=== PATIENT | male | born 1980 | race African-American/Black ===

== ENCOUNTER 2017-12-15 19:56 | Emergency (ER) | payer OTHER ==
[2017-12-15 20:18] LABS: ADD MAN DIFF? NO
[2017-12-15 20:20] LABS: BASO # 0.1 x10^3/uL (0.0-0.2); BASO % 1 % (0-3); EOS # 0.2 x10^3/uL (0.0-0.7); EOS % 3 % (0-3); HEMATOCRIT 38.1 % (39.0-53.0); HEMOGLOBIN 13.5 g/dL (13.0-17.5); LYMPH # 2.7 x10^3/uL (1.0-4.8); LYMPH % 38 % (24-48); MEAN CORPUSCULAR HEMOGLOBIN 29 pg (25-35); MEAN CORPUSCULAR HGB CONC 35 g/dL (31-37); MEAN CORPUSCULAR VOLUME 82 fL (79-100); MONO # 0.4 x10^3/uL (0.0-1.1); MONO % 6 % (0-9); NEUT # 3.7 x10^3uL (1.8-7.7); NEUT % 51 % (31-73); PLATELET COUNT 367 x10^3/uL (140-400); RED BLOOD COUNT 4.65 x10^6/uL (4.30-5.70); RED CELL DISTRIBUTION WIDTH 14.2 % (11.5-14.5); WHITE BLOOD COUNT 7.2 x10^3/uL (4.0-11.0)
[2017-12-15 20:30] LABS: ANION GAP 6 (6-14); BLOOD UREA NITROGEN 18 mg/dL (8-26); CALCIUM 9.2 mg/dL (8.5-10.1); CARBON DIOXIDE 30 mmol/L (21-32); CHLORIDE 98 mmol/L (98-107); CREATININE 1.4 mg/dL (0.7-1.3); GLUCOSE 371 mg/dL (70-99); POTASSIUM 3.7 mmol/L (3.5-5.1); SODIUM 134 mmol/L (136-145)
[2017-12-15 20:39] LABS: TROPONINI < 0.017 ng/mL (0.000-0.055)
[2017-12-15 20:43] LABS: NT-PRO BNP 72 pg/mL (0-124)
[2017-12-15] MEDS: cloNIDine HCL 0.1 MG TABLET PO (21:44)
== END 2017-12-15 23:15 | disposition home or self-care (01) ==
LOC: ER 19:56
DX: I10 Essential (primary) hypertension (principal); R07.89 Other chest pain
CPT/HCPCS: 36415; 71045; 80048; 83880; 84484; 85025; 93005; 99285-25

== ENCOUNTER 2018-03-01 12:36 | Emergency (ER) | payer OTHER ==
[~2018-03-01] VITALS: Ht 190.5 cm; Wt 105.7 kg
[2018-03-01 12:47] VITALS: BP 174/100
[2018-03-01 13:42] LABS: BILIRUBIN,URINE NEGATIVE (NEG); CLARITY,URINE CLEAR; COLOR,URINE YELLOW; NITRITE,URINE NEGATIVE (NEG); PH,URINE 5.5; PROTEIN,URINE >=300 mg/dL (NEG-TRACE); UROBILINOGEN,URINE 0.2 mg/dL (0.2 mg/dL)
--- NOTE | 2018-03-01 13:45 | PHYS DOC ---
Past Medical History Past Medical History: Hypertension Past Surgical History: No Surgical History Alcohol Use: None Drug Use: None Adult General Chief Complaint Chief Complaint: OTHER COMPLAINTS HPI HPI Patient is a 37 year old AA male who presents to the ER with complaints of left side pain for the last 2 weeks. He reports that he was seen by his doctor and prescribed 2 medications 2 weeks ago but he is unsure of what the diagnosis or medications were. He denies any fever, nausea, vomiting, or diarrhea. States he has has a little bit of constipation. He reports that the pain in is side is fine if he is resting at home. 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 He denies any known injury, numbness, tingling, or back pain. He denies any hematuria, urinary frequency, dysuria, or abdominal pain. He states that his left side is sore to palpation. Kaitlin MUÑOZ contacted PCPs office who report that patient was diagnosed with GERD 2 weeks ago and prescribed zantac and omeprazole. Review of Systems Review of Systems Constitutional: Denies fever or chills [] Respiratory: Denies cough or shortness of breath [] Cardiovascular: Denies chest pain GI: Denies abdominal pain, nausea, vomiting, or diarrhea; reports mild constipation : Denies increased frequency, dysuria or hematuria [] Musculoskeletal: Denies back pain or joint pain [] Integument: Denies rash or skin lesions [] Neurologic: Denies headache, focal weakness or sensory changes [] All other systems were reviewed and found to be within normal limits, except as documented in this note. Allergies Allergies Allergies Coded Allergies Type Severity Reaction Last Updated Verified No Known Drug Allergies 12/15/17 No Physical Exam Physical Exam Constitutional: Well developed, well nourished, no acute distress, non-toxic appearance. [] HENT: Normocephalic, atraumatic, bilateral external ears normal, nose normal. [] Eyes: PERRLA, conjunctiva normal, no discharge. [] Neck: Normal range of motion, no tenderness, supple, no stridor. [] Cardiovascular: Heart rate regular rhythm, no murmur [] Lungs & Thorax: Bilateral breath sounds clear to auscultation [] Abdomen: Bowel sounds normal, soft, no tenderness, no masses, no pulsatile masses; left flank tender to palpation [] Skin: Warm, dry, no erythema, no rash. [] Back: No tenderness Neurologic: Alert and oriented X 3, normal motor function, normal sensory function, no focal deficits noted. [] Psychologic: Affect normal, judgement normal, mood normal. [] Current Patient Data Vital Signs Vital Signs Date Time Temp Pulse Resp B/P (MAP) Pulse Ox O2 Delivery O2 Flow Rate FiO2 03/01/18 12:47 97.8 100 18 174/100 (124) Room Air 97.8 Lab Values Laboratory Tests Test 03/01/18 13:20 03/01/18 14:20 Urine Collection Type Clean catch Urine Color Yellow Urine Clarity Clear Urine pH 5.5 Urine Specific Boyd 1.025 Urine Protein >=300 mg/dL (NEG-TRACE) Urine Glucose (UA) >=1000 mg/dL (NEG) Urine Ketones (Stick) Negative mg/dL (NEG) Urine Blood Moderate (NEG) Urine Nitrite Negative (NEG) Urine Bilirubin Negative (NEG) Urine Urobilinogen Dipstick 0.2 mg/dL (0.2 mg/dL) Urine Leukocyte Esterase Negative (NEG) Urine RBC 11-20 /HPF (0-2) Urine WBC 1-4 /HPF (0-4) Urine Squamous Epithelial Cells Occ /LPF Urine Bacteria Few /HPF (0-FEW) Urine Hyaline Casts Few /HPF Urine Mucus Mod /LPF White Blood Count 7.5 x10^3/uL (4.0-11.0) Red Blood Count 4.81 x10^6/uL (4.30-5.70) Hemoglobin 13.7 g/dL (13.0-17.5) Hematocrit 39.3 % (39.0-53.0) Mean Corpuscular Volume 82 fL (79-100) Mean Corpuscular Hemoglobin 29 pg (25-35) Mean Corpuscular Hemoglobin Concent 35 g/dL (31-37) Red Cell Distribution Width 14.2 % (11.5-14.5) Platelet Count 367 x10^3/uL (140-400) Neutrophils (%) (Auto) 58 % (31-73) Lymphocytes (%) (Auto) 30 % (24-48) Monocytes (%) (Auto) 8 % (0-9) Eosinophils (%) (Auto) 3 % (0-3) Basophils (%) (Auto) 2 % (0-3) Neutrophils # (Auto) 4.3 x10^3uL (1.8-7.7) Lymphocytes # (Auto) 2.3 x10^3/uL (1.0-4.8) Monocytes # (Auto) 0.6 x10^3/uL (0.0-1.1) Eosinophils # (Auto) 0.2 x10^3/uL (0.0-0.7) Basophils # (Auto) 0.1 x10^3/uL (0.0-0.2) Sodium Level 139 mmol/L (136-145) Potassium Level 3.8 mmol/L (3.5-5.1) Chloride Level 100 mmol/L (98-107) Carbon Dioxide Level 33 mmol/L (21-32) H Anion Gap 6 (6-14) Blood Urea Nitrogen 20 mg/dL (8-26) Creatinine 1.4 mg/dL (0.7-1.3) H Estimated GFR (Cockcroft-Gault) 69.0 BUN/Creatinine Ratio 14 (6-20) Glucose Level 348 mg/dL (70-99) H Calcium Level 9.9 mg/dL (8.5-10.1) Total Bilirubin 0.4 mg/dL (0.2-1.0) Aspartate Amino Transferase (AST) 20 U/L (15-37) Alanine Aminotransferase (ALT) 36 U/L (16-63) Alkaline Phosphatase 95 U/L (46-116) Total Protein 7.5 g/dL (6.4-8.2) Albumin 3.0 g/dL (3.4-5.0) L Albumin/Globulin Ratio 0.7 (1.0-1.7) L Laboratory Tests 03/01/18 14:20 Laboratory Tests 03/01/18 14:20 EKG EKG [] Radiology/Procedures Radiology/Procedures PROCEDURE: CT ABDOMEN PELVIS WO CONTRAST CT Abdomen and Pelvis without contrast History: Left flank pain for 2 weeks Technique: Noncontrast CT imaging was performed of the abdomen and pelvis. Multiplanar images are reviewed. Exposure: One or more of the following individualized dose reduction techniques were utilized for this examination: 1. Automated exposure control 2. Adjustment of the mA and/or kV according to patient size 3. Use of iterative reconstruction technique. Comparison: None Findings: There is no renal calculus, convincing ureteral calculus, or hydronephrosis. There is mild distention of the urinary bladder. Ureters in the pelvis are somewhat difficult to visualize in their entirety. Accurate evaluation of abdominal visceral organs is limited without intravenous contrast. There is no obvious abnormality of the spleen, liver, or pancreas. There is no adrenal nodularity. Accurate evaluation of bowel is limited without oral contrast. Normal appendix is visualized. There is no significant free air, free fluid, bowel dilatation. There is borderline left inguinal node about 1.1 cm short axis dimension. Impression: 1. There is no hydronephrosis, renal calculus, or convincing ureteral calculus. There is mild distention of urinary bladder. No significant acute abnormality is identified. 2. There is nonspecific borderline enlarged left inguinal node.[] Course & Med Decision Making Course & Med Decision Making Pertinent Labs and Imaging studies reviewed. (See chart for details) Dx: L flank pain, hematuria CT was negative for kidney stone or hydronephrosis, 1.1 cm enlarged left inguinal lymphnode. Prescriptions written for norflex, and naproxen. Advised pt to follow up with PCP re: hematuria and enlarged lymphnode. Patient verbalized an understanding of home care, medications, follow-up, and return to ED instructions and was in agreement with the plan of care. [] Staff Physician Addendum: I was working in the ER during the course of this patient's visit. I was available for consultation as needed, but I was not directly involved in the care of this patient. Dragon Disclaimer Dragon Disclaimer This electronic medical record was generated, in whole or in part, using a voice recognition dictation system. Departure Departure Impression: Primary Impression: Left flank tenderness Additional Impression: Hematuria Disposition: HOME, SELF-CARE Condition: STABLE Referrals: MANNY REARDON (PCP) Patient Instructions: Flank Pain, [id number], Hematuria-Brief Additional Instructions: Fill prescriptions and use as directed. Avoid activities that worsen your symptoms. Follow up with your PCP about your hematuria and enlarged inguinal lymphnode this week. Return to the ER your symptoms worsen. Scripts Naproxen (NAPROXEN) 500 Mg Tablet.dr 500 MG PO BID PRN for PAIN for 10 Days, #20 TAB.SR 0 Refills Prov: MICHAEL PRESLEY PULPER OPERATOR 03/01/18 Orphenadrine Citrate (ORPHENADRINE CITRATE) 100 Mg Tablet.er 100 MG PO BID PRN for PAIN for 10 Days, #20 TAB.SR 0 Refills Prov: MICHAEL PRESLEY APRN 03/01/18 Problem Qualifiers Additional Impression: Hematuria Hematuria type: unspecified type Qualified Codes: R31.9 - Hematuria, unspecified MICHAEL PRESLEY APRN Mar 01, 2018 13:45 CORINA SMART MD Mar 01, 2018 17:59
[2018-03-01 13:56] LABS: BACTERIA,URINE FEW /HPF (0-FEW); HYALINE CASTS, URINE FEW /HPF; SQUAMOUS EPITHELIAL CELL,UR OCC /LPF
[2018-03-01 14:32] LABS: BASO # 0.1 x10^3/uL (0.0-0.2); BASO % 2 % (0-3); EOS # 0.2 x10^3/uL (0.0-0.7); EOS % 3 % (0-3); HEMATOCRIT 39.3 % (39.0-53.0); HEMOGLOBIN 13.7 g/dL (13.0-17.5); LYMPH # 2.3 x10^3/uL (1.0-4.8); LYMPH % 30 % (24-48); MEAN CORPUSCULAR HEMOGLOBIN 29 pg (25-35); MEAN CORPUSCULAR HGB CONC 35 g/dL (31-37); MEAN CORPUSCULAR VOLUME 82 fL (79-100); MONO # 0.6 x10^3/uL (0.0-1.1); MONO % 8 % (0-9); NEUT # 4.3 x10^3uL (1.8-7.7); NEUT % 58 % (31-73); PLATELET COUNT 367 x10^3/uL (140-400); RED BLOOD COUNT 4.81 x10^6/uL (4.30-5.70); RED CELL DISTRIBUTION WIDTH 14.2 % (11.5-14.5); WHITE BLOOD COUNT 7.5 x10^3/uL (4.0-11.0)
[2018-03-01 14:46] LABS: CALCIUM 9.9 mg/dL (8.5-10.1); CREATININE 1.4 mg/dL (0.7-1.3); POTASSIUM 3.8 mmol/L (3.5-5.1)
[2018-03-01 14:51] LABS: ALBUMIN/GLOBULIN RATIO 0.7 (1.0-1.7); TOTAL BILIRUBIN 0.4 mg/dL (0.2-1.0); TOTAL PROTEIN 7.5 g/dL (6.4-8.2)
--- NOTE | 2018-03-01 15:01 | RAD ---
CT Abdomen and Pelvis without contrast History: Left flank pain for 2 weeks Technique: Noncontrast CT imaging was performed of the abdomen and pelvis. Multiplanar images are reviewed. Exposure: One or more of the following individualized dose reduction techniques were utilized for this examination: 1. Automated exposure control 2. Adjustment of the mA and/or kV according to patient size 3. Use of iterative reconstruction technique. Comparison: None Findings: There is no renal calculus, convincing ureteral calculus, or hydronephrosis. There is mild distention of the urinary bladder. Ureters in the pelvis are somewhat difficult to visualize in their entirety. Accurate evaluation of abdominal visceral organs is limited without intravenous contrast. There is no obvious abnormality of the spleen, liver, or pancreas. There is no adrenal nodularity. Accurate evaluation of bowel is limited without oral contrast. Normal appendix is visualized. There is no significant free air, free fluid, bowel dilatation. There is borderline left inguinal node about 1.1 cm short axis dimension. Impression: 1. There is no hydronephrosis, renal calculus, or convincing ureteral calculus. There is mild distention of urinary bladder. No significant acute abnormality is identified. 2. There is nonspecific borderline enlarged left inguinal node. Electronically signed by: Jong Thomas MD (03/01/2018 2:58 PM) [email or web address]
[2018-03-01] MEDS ORDERED: ORPH100T PO (15:27)
[2018-03-01] MEDS ORDERED: NAPR500T8 PO (15:27)
== END 2018-03-01 15:40 | disposition home or self-care (01) ==
LOC: ER 12:36
DX: R10.9 Unspecified abdominal pain (principal); R31.9 Hematuria, unspecified; N32.89 Other specified disorders of bladder; I10 Essential (primary) hypertension; K59.00 Constipation, unspecified
CPT/HCPCS: 36415; 74176; 80053; 81001; 85025; 99285-25

== ENCOUNTER 2018-07-14 17:53 | Emergency (ER) | payer OTHER ==
[~2018-07-14] VITALS: Ht 190.5 cm; Wt 104.3 kg
[~2018-07-14 17:53] MED LIST: NAPR500T8 PO; ORPH100T PO
[2018-07-14 19:15] VITALS: BP 178/118
[2018-07-14] MEDS ORDERED: cloNIDine HCL 0.1 MG TABLET PO ONE (19:15)
--- NOTE | 2018-07-14 19:23 | PHYS DOC ---
Past Medical History Past Medical History: Diabetes-Type II, Hypertension (MICHAEL PRESLEY APRN) Past Surgical History: No Surgical History (MICHAEL PRESLEY APRN) Alcohol Use: None Drug Use: None (MICHAEL PRESLEY APRN) Adult General Chief Complaint Chief Complaint: FINGER INJURY HPI HPI Patient is a 38 year old AA male who presents to the emergency room with complaints of pain and swelling to his distal right finger. Patient states that he believes he has frostbite. 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 He was sent home, he will warmth finger. Patient states that when he woke up he noticed that there was swelling to the finger. He reports his pain as a 5 out of 10 on pain scale. He denies any numbness, or tingling of the affected finger. Patient states he has high blood pressure knee takes lisinopril 20 mg at home for his pressure. He reports his last tetanus shot was less than 5 years ago. (MICHAEL PRESLEY APRN) Review of Systems Review of Systems Constitutional: Denies fever or chills [] HENT: Denies nasal congestion or sore throat [] Respiratory: Denies cough or shortness of breath [] Cardiovascular: No additional information not addressed in HPI [] Musculoskeletal: Denies joint pain [] Integument: See HPI Neurologic: Denies headache, focal weakness or sensory changes [] (MICHAEL PRESLEY APRN) Current Medications Current Medications Current Medications Medications (Trade) Dose Ordered Sig/Bonnie Start Time Stop Time Status Last Admin Dose Admin Clonidine HCl (Catapres) 0.1 mg 1X ONCE 07/14/18 19:15 07/14/18 19:16 DC 07/14/18 19:15 0.1 MG (CORINA SMART MD) Allergies Allergies Allergies Coded Allergies Type Severity Reaction Last Updated Verified No Known Drug Allergies 12/15/17 No (CORINA SMART MD) Physical Exam Physical Exam Constitutional: Well developed, well nourished, no acute distress, non-toxic appearance. [] HENT: Normocephalic, atraumatic, bilateral external ears normal, nose normal. [] Eyes: conjunctiva normal, no discharge. [] Neck: Normal range of motion, no tenderness, supple, no stridor. [] Cardiovascular:Heart rate regular rhythm, no murmur [] Lungs & Thorax: Bilateral breath sounds clear to auscultation [] Skin: Warm, dry, no erythema, no rash; distal to DIP of R 4th digit is swollen with blistering noted, no tissue sloughing or erythema, the skin is warm and dry to touch, cap refill < 2 seconds. [] Extremities: No tenderness, no cyanosis, no clubbing, ROM intact Neurologic: Alert and oriented X 3, normal motor function, normal sensory function, no focal deficits noted. [] Psychologic: Affect normal, judgement normal, mood normal. [] (MICHAEL PRESLEY APRN) Current Patient Data Vital Signs Vital Signs Date Time Temp Pulse Resp B/P (MAP) Pulse Ox O2 Delivery O2 Flow Rate FiO2 07/14/18 19:15 95 178/118 07/14/18 18:00 98.0 18 97 Room Air 98.0 (CORINA SMART MD) EKG EKG [] (MICHAEL PRESLEY APRN) Radiology/Procedures Radiology/Procedures [] (MICHAEL PRESLEY APRN) Course & Med Decision Making Course & Med Decision Making Pertinent Labs and Imaging studies reviewed. (See chart for details) Dx: Superficial frostbite of tissue of right 4th finger, hypertension PT's BP recheck was 178/123 a 0.1 mg Clonidine was ordered. Pt was encouraged to keep his finger warm, take tylenol or ibuprofen as needed for pain. Pt was instructed to follow up with his PCP next week for reevaluation of BP and frostbite Patient verbalized an understanding of home care, medications, follow-up, and return to ED instructions and was in agreement with the plan of care. [] (MICHAEL PRESLEY APRN) Course & Med Decision Making Staff Physician Addendum: I was working in the ER during the course of this patient's visit. I was available for consultation as needed, but I was not directly involved in the care of this patient. (CORINA SMART MD) Dragon Disclaimer Dragon Disclaimer This electronic medical record was generated, in whole or in part, using a voice recognition dictation system. (MICHAEL PRESLEY APRN) Departure Departure Impression: Primary Impression: Hypertension Additional Impression: Superficial frostbite of finger of right hand Disposition: 01 HOME, SELF-CARE Condition: STABLE Referrals: MANNY RERADON (PCP) Patient Instructions: Frostbite, [id number], Hypertension Additional Instructions: Keep your finger warm and dry. Follow up with your primary care doctor about your blood pressure. Return to the ER if symptoms worsen. Problem Qualifiers Primary Impression: Hypertension Hypertension type: unspecified Qualified Codes: I10 - Essential (primary) hypertension Additional Impression: Superficial frostbite of finger of right hand Encounter type: initial encounter Qualified Codes: T33.531A - Superficial frostbite of right finger(s), initial encounter MICHAEL PRESLEY APRN Jul 14, 2018 19:23 CORINA SMART MD Jul 14, 2018 19:38
== END 2018-07-14 19:40 | disposition home or self-care (01) ==
LOC: ER 18:26
DX: T33.531A Superficial frostbite of right finger(s), initial encounter (principal); I10 Essential (primary) hypertension; E11.9 Type 2 diabetes mellitus without complications; X31.XXXA Exposure to excessive natural cold, initial encounter; Y93.89 Activity, other specified; Y92.89 Other specified places as the place of occurrence of the external cause; Y99.0 Civilian activity done for income or pay
CPT/HCPCS: 99282

== ENCOUNTER → 2018-11-24 | Outpatient (CLI) | payer OTHER ==
--- NOTE | 2018-11-24 16:11 | KCIC ---
Left lower extremity venous duplex study 11/24/2018 Clinical History: Left calf swelling and pain Technique: Using a combination of real time ultrasound imaging and color-flow and pulse Doppler imaging techniques, including spectral analysis, graded compression and augmentation, duplex evaluation of the deep venous system of the left lower extremity was performed. Multiple images were obtained. Findings: There is no sonographic evidence of deep venous thrombosis involving the visualized deep venous structures of the left lower extremity Impression: No evidence of deep venous thrombosis involving the left lower extremity Electronically signed by: Bakari Urbano MD (11/24/2018 4:08 PM) [id number]
== END | disposition home or self-care (01) ==
LOC: KCIC US 14:35
PROVIDERS: ATTEND Family Medicine
DX: M79.662 Pain in left lower leg (principal); R22.42 Localized swelling, mass and lump, left lower limb
CPT/HCPCS: 93971